=== PATIENT | female | born 1955 | race Caucasian/White ===

== ENCOUNTER → 2019-08-09 | Day surgery (SDC) | payer OTHER ==
[~2019-08-09] MED LIST: ACETAMINOPHEN 1000 MG/100 ML IV ONE; BUPIVACAINE HCL 0.5% INJ 30 ML VIAL INJ ONE; CEFAZOLIN SOD 1 GM/NS 50ML 50 ML IV ONE; DAILY VITAMIN1 EAC3; DEXAMETHASONE SOD PHOS INJ 4 MG/ML VIAL ONE; FENTANYL CITRATE/PF 100MCG/2 ML INJ ONE; KETOROLAC TROMETHAMINE 30 MG/ML VIAL ONE; LIDOCAINE HCL 2% LOCAL INJ 5 ML SDV VIAL INJ ONE; MIDAZOLAM HCL 2 MG/2 ML VIAL ONE; OMEGA 3 1,0001 EACH PO; ONDANSETRON HCL INJ 2MG/ML 2ML 2 MG/ML VIAL ONE; PROPOFOL IV EMULSION 10 MG/ML 20 ML VIAL ONE; SEVOFLURANE INHAL SOLN 250 ML PEN BTL ONE
[2019-08-09 09:30] VITALS: BP 148/81
--- NOTE | 2019-08-10 13:15 | Operative Report ---
DATE OF PROCEDURE: 08/09/2019 SURGEON: Meka Ochoa DPM PREOPERATIVE DIAGNOSES: 1. Right ankle osteophyte. 2. Right ankle diastasis. 3. Right ankle, ruptured lateral ankle ligament. SURGEON: Dr. Brenda DPM. OUTSIDE SALES INSPECTOR: Meka Ochoa DPM. ANESTHESIA: General with a postoperative block consisting of a 20 mL of 0.5% Marcaine plain mixed with 1 mL of dexamethasone phosphate. HEMOSTASIS: Pneumatic thigh tourniquet set at 350 mmHg for a total time of approximately 90 minutes. MATERIALS: 1. One [employer] 4-hole locking plate, two [employer] SYNCHFIX devices, one Mite[employer] GII anchor. 2. 2-0 Vicryl, 3-0 Vicryl, and 4-0 Prolene. ESTIMATED BLOOD LOSS: Less than 10 mL. PATHOLOGY: None. PROCEDURE NOTE: The patient was seen in the preoperative waiting room, where the correct procedure and site was identified. The patient was brought into the operating room and placed on the operating table in the supine position. General anesthesia was initiated. At this time, a well-padded pneumatic tourniquet was placed about the patient's right thigh. The right foot, ankle, and leg was scrubbed, prepped, and draped in the usual aseptic manner. The right foot, ankle, and leg was exsanguinated with an Esmarch bandage. A pneumatic thigh tourniquet was inflated to 350 mmHg for a total time of approximately 90 minutes. Attention was directed to the anterior aspect of the patient's right ankle, where a 5 cm linear incision made directly over the large exostosis on the anterior aspect of the talus. The incision was carried to the subcutaneous tissue them from deep or underlying structures. All vital and neurovascular structures were identified, retracted medially and laterally, and all bleeders were cauterized or ligated as deemed necessary. At this time, the tibialis anterior tendon was encountered and retracted medially, and the extensor digitorum longus tendon was identified, retracted laterally. Anterior ankle arthrotomy was performed to allow for good visualization of the ankle joint. There was noted to be a large bony exostosis on the anterior aspect of the talus. Utilizing an osteotome and mallet, the exostosis was excised and passed off to the back table. Next, utilizing a bur and a hand rasp, the exostosis was smoothed to anatomic alignment. The wound was then copiously irrigated with sterile saline. Capsule and deep tissue were reapproximated with 2-0 Vicryl, subcutaneous tissue with 3-0 Vicryl, and the skin was closed using a running interlocking stitch with 4-0 Prolene. Attention was directed to the lateral aspect of the patient's right ankle, where a J-type incision was performed originating at the plantar aspect of the inferior fibula extending distally and superiorly along the anterior aspect of the fibula and the incision was carried superiorly to evaluate the syndesmosis. The incision was carried to the subcutaneous tissue them from deep or underling structures. All vital and neurovascular structures were identified, retracted medially and laterally, and all bleeders were cauterized or ligated as deemed necessary. Next, the lateral ankle capsule as well as the retinaculum was identified as well as the attenuated ligaments. Utilizing a #15 blade, a J-type incision was made through the lateral aspect of the ankle, capsule and the anterior talofibular ligament extending inferior to the distal fibula with care to be taken to make sure the peroneal tendons were intact. The dissection was carried down to the level of the fibula and there was noted to be a large bony prominence to the anterior-inferior aspect of the fibula with multiple osteophyte fragments noted. The incision was carried proximally through the level of the anterior fibula and through the use of intraoperative fluoroscopy. The syndesmosis was noted to be a synostosis at this point with partial fusion. Utilizing an osteotome and yanet ronakbar as well as a sagittal saw, the synostosis from the previous syndesmotic injury was debrided and dissected to allow for good visualization of the ankle joint lateral capsule. The fibula was remodeled to anatomic alignment and confirmed via intraoperative fluoroscopy. Next, utilizing manufacture protocol, one G2 anchor was placed on the distal anterior aspect of the fibula. The ankle joint was held in dorsiflexion and eversion and reapproximated with the suture. Next, the Red modification was performed with [id number] fashion to the lateral ankle capsule as well as the anterior talofibular ligament. The ankle was noted to be stable with minimal inversion noted. Next, utilizing the same incision, the dissection was carried down to the lateral fibula. A [employer] 4-hole plate was temporarily fixated utilizing guidewires and confirmed to be in the correct location with intraoperative fluoroscopy. The most superior and inferior screws were placed with 16 mm nonlocking screws. Next, per manufacture protocol, two SYNCHFIX fixation devices were performed. Two stab incisions were made on the medial side of the ankle to allow for proper button placement. The SYNCHFIX was tied down to anatomic alignment while holding the ankle joint syndesmosis reduced with the pelvic reduction forceps. Both wounds were then copiously irrigated with sterile saline. Capsule and deep tissue were reapproximated with 2-0 Vicryl, subcutaneous tissue with 3-0 Vicryl, and the skin was closed using a running interlocking stitch with 4-0 Prolene and simple interrupted sutures on the lateral aspect of the incision site with 4-0 Prolene as well as the medial aspect of the site. The incision site was then dressed with Adaptic, 4x4s, Kerlix, Polar Care device, posterior splint, 4-inch Smith wrap, and a 6-inch Smith wrap. The patient tolerated the procedure and anesthesia well. The patient was transferred to the postoperative recovery unit with vital signs stable and vascular status intact. The patient was monitored there for a short period of time before being sent home with the following written and oral instructions: 1. Keep the dressing clean, dry, and intact. 2. The patient is to remain nonweightbearing to the right lower extremity to avoid any ambulation until being seen in the office. 3. The patient is given office number and instructed to contact us if any problems arise. ARINA Sosa/MODL /[id number]
== END | disposition home or self-care (01) ==
LOC: OR 05:20
PROVIDERS: ATTEND Podiatrist Foot & Ankle Surgery
DX: M25.771 Osteophyte, right ankle (principal); M62.08 Separation of muscle (nontraumatic), other site; S93.401A Sprain of unspecified ligament of right ankle, initial encounter; E66.9 Obesity, unspecified; X58.XXXA Exposure to other specified factors, initial encounter; Z01.810 Encounter for preprocedural cardiovascular examination
CPT/HCPCS: 27695; 28100; 93005; C1713 ×4; J0131; J0690; J1100; J1885; J2001; J2250; J2405; J2704; J3010